=== PATIENT | female | born 1990 ===

== ENCOUNTER 2017-09-26 07:19 | Emergency (ER) | payer SELFPAY ==
--- NOTE | 2017-09-26 07:32 | UC ---
Cardiac HPI - HPI Summary HPI Summary: Pt is a 27 y/o F w/ c/o constant left-sided chest pain onsetting 2300 yesterday. She was packing boxes to move out of her current place of residence when she noted chest pain. Pain is rated 5/10 and described as aching on triage. Pt cannot recall if any specific movement caused pain. She reports having similar pain in the past at the exact same location, but notes that these episodes of pain usually last only a few minutes. Continued presence of pain prompted UC visit today. Pt reports pain with deep breaths but denies cough and chest congestion. Pain is lessened while lying down. Pt reports pain prevents her from moving around well/quickly. She notes chronic stomach problems but denies other medical problems. Pt denies edema and pain in LE. No Hx of blood clots and denies smoking. She has recently travelled to [place] and [place]. - History of Current Complaint Stated Complaint: CHEST PAIN Time Seen by Provider: 09/26/17 07:21 Hx Obtained From: Patient Onset/Duration: Lasting Hours - onset 2300 yesterday Timing: Constant Current Severity: Moderate Pain Intensity: 5 - 5/10 Chest Pain Location: Discrete at: - left side Character: Dull/Aching Aggravating Factor(s): Movement Alleviating Factor(s): Position - lying down Associated Signs & Symptoms: Positive: Chest Pain, Abdominal Pain - chronic. Negative: Cough, Calf Pain/Swelling - Allergy/Home Medications Allergies/Adverse Reactions: Allergies Allergy/AdvReac Type Severity Reaction Status Date / Time No Known Allergies Allergy Verified 09/26/17 07:23 Home Medications: Home Medications NK [No Home Medications Reported] 09/26/17 [History Confirmed 09/26/17] PMH/Surg Hx/FS Hx/Imm Hx Endocrine History: Other Other Endocrine History: NEGATIVE: diabetes GI/ History: Gastroesophageal Reflux - Family History Known Family History: Negative: Blood Disorder - Social History Alcohol Use: None Substance Use Type: None Smoking Status (MU): Never Smoked Tobacco Review of Systems Respiratory: Other - NEGATIVE: cough, chest congestion POSITIVE: Pain with deep breaths Cardiovascular: Chest Pain - left-sided All Other Systems Reviewed And Are Negative: Yes Physical Exam - Summary Physical Exam Summary: General: well-appearing, no pain distress Skin: warm, color reflects adequate perfusion, dry Head: normal Eyes: EOMI, KERON ENT: normal Neck: supple, nontender Respiratory: CTA, breath sounds present Cardiovascular: RRR Abdomen: soft, nontender Bowel: present Musculoskeletal: normal, strength/ROM intact Neurological: sensory/motor intact, A&O x3 Psychological: affect/mood appropriate Triage Information Reviewed: Yes Vital Signs: Initial Vital Signs Temp 98.9 F 09/26/17 07:23 Pulse 60 09/26/17 07:23 Resp 18 09/26/17 07:23 BP 111/67 09/26/17 07:23 Pulse Ox 98 09/26/17 07:23 Vital Signs Reviewed: Yes Diagnostics - EKG EKG Comments: 0720 Cardiac Rate: Bradycardia - rate at 57 BPM Cardiac Rhythm: Sinus: Normal Ectopy: None ST Segment: Normal - Assessment/Plan Course Of Treatment: DISCUSSED THE NEED FOR FURTHER EVALUATION IN THE EMERGENCY DEPARTMENT TO EVALUATE FOR PULMONARY EMBOLIS AND OTHER CAUSES OF CHEST PAIN. DISCUSSED HAVING A CXR HERE IN CLINIC, THE PATIENT DECLINED THE CXR. - Clinical Impression Provider Diagnoses: LEFT SIDED CHEST PAIN Discharge - Sign-Out/Discharge Documenting (check all that apply): Patient Departure - Discharge Plan Condition: Stable Disposition: HOME-RECOMMEND TO ED Patient Education Materials: Chest Pain (ED) Referrals: No Primary Care Phys,NOPCP [Primary Care Provider] - Additional Instructions: TAKE IBUPROFEN 600MG EVERY 6 HOURS NEEDED FOR PAIN. GO DIRECTLY TO THE EMERGENCY DEPARTMENT ([facility]) FOR FURTHER EVALUATION AND CARE OF YOUR CHEST PAIN, SPECIFICALLY TO EVALUATE FOR A PULMONARY EMBOLUS, COLLAPSED LUNG OR HEART DAMAGE. - Billing Disposition and Condition Condition: STABLE Disposition: Home-Recommend to ED
[2017-09-26 07:33] VITALS: BP 111/67
[2017-09-26] MEDS ORDERED: Ibuprofen TAB* 600 MG PO ONE (07:53)
== END 2017-09-26 08:11 | disposition home health service (06) ==
LOC: UCEAST 07:19
DX: R07.89 Other chest pain (principal); R00.1 Bradycardia, unspecified; K21.9 Gastro-esophageal reflux disease without esophagitis
CPT/HCPCS: 93005; 99202; A9270-GY; G0463